=== PATIENT | male | born 1950 | race Caucasian/White ===

== ENCOUNTER → 2017-10-11 | Outpatient (CLI) | payer OTHER ==
[~2017-10-11] MED LIST: ASPIR 8181 MG PO; ATORVASTATIN CA40 MG PO; BRILINTA90 MG PO; CARDIZEM CD180 MG PO; CO Q-10100 MG PO; HUMALOG100 UNIT/1 SUBQ; LANTUS; LANTUS SUBQ; LEVOTHYROXINE0.05 MG PO; LIPITOR 20 MG T20 M1 PO; LOPRESSOR50 PO; MINIPRIN81 MG PO; MULTI VITAMIN1 EACH PO; NITROGLYCERIN0.4 MG SUBLING; TYLENOL325 MG PO
[2017-10-11 12:56] LABS: ABSOLUTE BASOPHILS 0.1 thou/uL (0.0-0.2); ABSOLUTE EOSINOPHILS 0.2 thou/uL (0.0-0.7); ABSOLUTE LYMPHOCYTES 1.6 thou/uL (0.8-5.3); ABSOLUTE MONOCYTES 0.4 thou/uL (0.0-1.2); ABSOLUTE NEUTROPHILS 5.4 thou/uL (1.6-8.1); BASOPHILS 0.8 %; EOSINOPHILS 2.1 %; HEMATOCRIT 34.1 % (42.0-52.0); HEMOGLOBIN 11.7 gm/dL (14.0-18.0); LYMPHOCYTES 20.7 %; MCH 32.3 pg (26.0-34.0); MCHC 34.2 g/dL (28.0-37.0); MCV 94.4 fL (80.0-100.0); MONOCYTES 5.7 %; MPV 6.9 fl. (7.2-11.1); NUCLEATED RBCS 0 /100WBC; PLATELET COUNT* 224 thou/uL (150-400); POLYS 70.7 %; RBC 3.61 mil/uL (4.50-6.00); RDW-CV 13.4 % (10.5-14.5); WBC 7.6 thou/uL (4.0-11.0)
[2017-10-11 13:03] LABS: CALCIUM 8.9 mg/dL (8.5-10.1); CREATININE 1.9 mg/dL (0.6-1.3); POTASSIUM 4.4 mmol/L (3.5-5.1)
[2017-10-11 13:08] LABS: ALBUMIN 3.6 g/dL (3.4-5.0); TOTAL BILIRUBIN 0.5 mg/dL (<0.1-1.0); TOTAL PROTEIN 7.3 g/dL (6.4-8.2)
== END ==
LOC: M.CT 11:59 → M.LAB 12:00 → M.CT 13:00
PROVIDERS: Family Medicine
DX: R10.84 Generalized abdominal pain (principal); M54.5 Low back pain; R19.8 Other specified symptoms and signs involving the digestive system and abdomen

== ENCOUNTER 2020-12-27 15:52 | Observation (INO) | payer OTHER, MEDICARE ==
[~2020-12-27] VITALS: Ht 188 cm; Wt 104.3 kg
[2020-12-27 15:52] VITALS: BP 156/85
[2020-12-27 16:14] LABS: ABSOLUTE BASOPHILS 0.1 thou/uL (0.0-0.2); ABSOLUTE EOSINOPHILS 0.1 thou/uL (0.0-0.7); ABSOLUTE LYMPHOCYTES 1.5 thou/uL (0.8-5.3); ABSOLUTE MONOCYTES 0.4 thou/uL (0.0-1.2); ABSOLUTE NEUTROPHILS 5.9 thou/uL (1.6-8.1); BASOPHILS 0.8 %; EOSINOPHILS 1.3 %; HEMOGLOBIN 13.1 gm/dL (14.0-18.0); LYMPHOCYTES 18.9 %; MCH 32.7 pg (26.0-34.0); MCHC 34.4 g/dL (28.0-37.0); MONOCYTES 5.6 %; NUCLEATED RBCS 0 /100WBC; PLATELET COUNT* 279 thou/uL (150-400); POLYS 73.4 %
[2020-12-27 16:22] LABS: CALCIUM 7.9 mg/dL (8.5-10.1); CREATININE 2.2 mg/dL (0.6-1.3); POTASSIUM 4.3 mmol/L (3.5-5.1)
[2020-12-27 16:35] LABS: ALBUMIN 3.2 g/dL (3.4-5.0); CK-MB MASS 1.2 ng/mL (<0.5-3.6); MAGNESIUM 1.8 mg/dL (1.8-2.4); TOTAL BILIRUBIN 0.4 mg/dL (<0.1-1.0); TOTAL PROTEIN 7.4 g/dL (6.4-8.2)
[2020-12-27 19:30] VITALS: BP 158/74
[2020-12-27] MEDS ORDERED: COZAAR 25 MG TA25 M1 PO (20:13)
[2020-12-27 23:30] VITALS: BP 164/73
[2020-12-28] VITALS (15 sets, daily range): BP systolic 117–175; BP diastolic 67–86
--- NOTE | 2020-12-28 10:00 | EKG ---
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
--- NOTE | 2020-12-28 15:00 | EKG ---
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 : 1950 Requested By: Christian Mittal Order Number: [id number] Reading MD: Christian Mittal Measurements Intervals [place] Rate: 48 P: 52 CT: 179 QRS: 18 QRSD: 101 T: 91 QT: 485 QTc: 434 Interpretive Statements Sinus bradycardia Ventricular premature complex Inferior infarct, old Compared to ECG 12/27/2020 15:54:43 Ventricular premature complex(es) now present Sinus rhythm no longer present Myocardial infarct finding still present Electronically Signed On 12-28-2020 14:59:54 CDT by Christian Mittal [email or web address] <ELECTRONICALLY SIGNED> By: Christian Mittal MD, FAC 12/28/20 1459 1214 1214 Christian Mittal MD, FAC /EPI
[2020-12-28] MEDS ORDERED: EFFIENT10 MG PO (15:56)
--- NOTE | 2020-12-28 16:26 | 2DMMODE ---
[place] [address] 2 D/M-MODE ECHOCARDIOGRAM Name: MAYURJOSEPH III Room: [address] Keith Dolan#: [id number] Admission: 12/27/20 Attend Phys: Jaden Marx, Discharge: Date of : 54 Date of Service: 12/28/20 1626 Report #: [id number] THIS REPORT FOR: cc: Demond Zhou,Demond Wagner,Christian Padron MD [facility] ~ APPROVED REPORT Study performed: 12/28/2020 14:40:05 EXAM: Comprehensive 2D, Doppler, and color-flow Echocardiogram Patient Location: In-Patient Room #: er Status: routine BSA: 2.31 HR: 50 bpm BP: 159/68 mmHg Rhythm: NSR Other Information Study Quality: Good Indications Chest Pain 2D Dimensions IVSd: 14.42 (7-11mm) LVOT Diam: 20.42 (18-24mm) LVDd: 55.31 mm PWd: 12.62 (7-11mm) Ascending Ao: 36.65 (22-36mm) LVDs: 32.13 (25-40mm) Aortic Root: 36.94 mm Volumes Left Atrial Volume (Systole) LA ESV Index: 25.70 mL/m2 Aortic Valve AoV Peak Alex.: 1.48 m/s AO Peak Gr.: 8.75 mmHg LVOT Max P.86 mmHg AO Mean Gr.: 4.51 mmHg LVOT Mean P.64 mmHg LVOT Max V: 0.98 m/s AO V2 VTI: 31.73 cm LVOT Mean V: 0.57 m/s STAN (VTI): 2.58 cm2 LVOT V1 VTI: 25.04 [place] [address] 2 D/M-MODE ECHOCARDIOGRAM Name: JOSEPH MERCHANT III Room: [address] M.R.#: [id number] Admission: 12/27/20 Attend Phys: Jaden Marx, Discharge: Date of : 54 Date of Service: 12/28/20 1626 Report #: [id number] Mitral Valve E/A Ratio: 0.86 MV Decel. Time: 261.41 ms MV E Max Alex.: 0.69 m/s MV PHT: 75.81 ms MVA (PHT): 2.90 cm2 TDI E/Lateral E': 7.67 E/Medial E': 7.67 Medial E' Alex.: 0.09 m/s Lateral E' Alex.: 0.09 m/s Pulmonary Valve PV Peak Alex.: 0.87 m/s PV Peak Gr.: 3.03 mmHg Left Ventricle The left ventricle is normal size. There is normal LV segmental wall motion. Mild concentric left ventricular hypertrophy. Left ventricular systolic function is normal. The left ventricular ejection fraction is within the normal range. LVEF is 55-60%. Grade I - abnormal relaxation pattern. Right Ventricle The right ventricle is normal size. The right ventricular systolic function is normal. Atria The left atrium size is normal. The right atrium size is normal. Aortic Valve The aortic valve is normal in structure. No aortic regurgitation is present. There is no aortic valvular stenosis. Mitral Valve The mitral valve is normal in structure. Mild mitral regurgitation. No evidence of mitral valve stenosis. Tricuspid Valve The tricuspid valve is normal in structure. Unable to assess PA pressure. Trace tricuspid regurgitation. Pulmonic Valve The pulmonary valve is normal in structure. There is no pulmonic [place] [address] 2 D/M-MODE ECHOCARDIOGRAM Name: MAYURJOSEPHMERLIN ARRON [address]: [address]#: [id number] Admission: 12/27/20 Attend Phys: Jaden Marx, Discharge: Date of : 54 Date of Service: 12/28/20 1626 Report #: [id number] Great Vessels The aortic root is normal in size. IVC is normal in size and collapses >50% with inspiration. Pericardium There is no pericardial effusion. <Conclusion> Mild concentric left ventricular hypertrophy. LVEF is 55-60%. Mild mitral regurgitation. <ELECTRONICALLY SIGNED> By: Christian Mittal MD, [facility] 12/28/20 1626 162 162 Christian Mittal MD, FAC /INF
--- NOTE | 2020-12-28 17:18 | CARD ---
[address] [address] CARDIAC CATH REPORT Name: JOSEPH MERCHANT III Room: [place] [address] ADM Keith Dolan#: [id number] Admission: 12/27/20 Attend Phys: Jaden Marx MD Discharge: Date of : 54 Report #: [id number] THIS REPORT FOR: cc: Demond Zhou Vincent R. DO Blick, David R. MD [facility] ~ APPROVED REPORT Study performed: 12/28/2020 10:14:15 Patient Details Patient Status: ED Room #: The patient is a 70 year-old male Event Personnel Christian Mittal Auto Damage Trainee, Mary Andrea RN RN, Marilu Madrid RTR Scrub, Kim Tadeo RTR Monitor Procedures Performed Art Access - R radial artery Left Heart Cath w/or w/o Coronaries ANDI Place w/wo Plasty Single LAD Hemostasis with Hemoband Indication Unstable angina , Chest pain Risk Factors Hypercholesterolemia, Coronary Artery DiseaseHypertension, Diabetes Previous Procedures/Diagnoses Previous PCI, Previous LA Admission/Lab Medications/Medications given during procedure Glycoprotein IllbIlla Inhibitors, Heparin Unfract., Lidocaine Subcut 8 ml, Oxygen Nasal cannula 2 l per min, 0.9% Sodium Chloride IV 150 ml per hr, Nitroglycerin IA 400 mcg, Verapamil IA 5 mg, Heparin IV 5000 units, Heparin IV 1000 units, Aggrastat IV 10 ml, Effient PO 60 mg Procedure Narrative The patient was brought electively to the Cardiac Catheterization Laboratory and was prepped and draped in a sterile manner. The right wrist was infiltrated with 2% Lidocaine [place] [address] CARDIAC CATH REPORT Name: JOSEPH MERCHANT III Room: [address] Magdaleno#: [id number] Admission: 12/27/20 Attend Phys: Jaden Marx MD Discharge: Date of : 54 Report #: [id number] conscious sedation was used throughout procedure with appropriate monitoring and was performed in the presence of a registered nurse who was an independent trained observer other than the physician performing the procedure. A Slender Glidesheath sheath was inserted into the right radial artery. Coronary angiography was performed using coronary diagnostic catheters. The right coronary system was accessed and visualized with a Diagnostic catheter. The left coronary system was accessed and visualized with a Diagnostic catheter. The left ventricle was accessed and visualized with a Diagnostic catheter. Left ventricular/Aortic Valve gradient assessed via catheter pullback. Closure device was deployed with a 6 Fr Vasc-Band Lng 27cm. The patient tolerated the procedure well and there were no complications associated with the procedure. There was no hematoma. Intraoperative Conscious Sedation Sedation start time: 10:49 Case end Time: 11:30 Fentanyl 25 mcg Versed 2 mg Fluoro Time: 6.2 minutes Dose: DAP 45459 cGycm2 1164 mGy Contrast Type and Amount: Visipaque 160 ml Coronary Angiography The patient's coronary anatomy is right dominant. Diagnostic Cath Left Main 0% stenosis LAD 80% mid stenosis Diagonal 2 small vessel with 90% proximal stenosi Circumflex mid stent with 0% restenosis Right Coronary proximal stent with 0% restenosis Left Ventriculography Left Ventriculography was not performed. Hemodynamics The aortic pressure is 119/61 mmHg with a mean of 80 mmHg. The left ventricular pressure is 114/10 mmHg with a mean of mmHg. The left ventricular end diastolic pressure is 10 mmHg. There was no gradient across the aortic valve upon pullback. Pullback from the left ventricle to the aorta revealed no gradient across [place] [address] CARDIAC CATH REPORT Name: JOSEPH MERCHANT III Room: [address] M..#: [id number] Admission: 12/27/20 Attend Phys: Jaden Marx MD Discharge: Date of : 54 Report #: [id number] PCI Technique Lesion Anticoagulation was achieved with Heparin. bolus of iv aggrastat given Percutaneous coronary intervention was performed on the mid left anterior descending artery segment. The lesion stenosis prior to intervention was 80% with DON 3 flow. A 6F XB LAD 3.5 Guide Catheter was used to engage the left ostium. A IG: BMW 190cm Interventional Guidewire was used to cross the lesion. BALLOON DILATION A Balloon catheter Euphora SC 2.5x12 was inserted and inflated up to 11.00atm for 15seconds. Repeat angiography revealed the following post-dilatation results: 40% stenosis. STENT DEPLOYMENT A drug-eluting stent Marcelo RX Stent 2.5X18mm was inserted and inflated up to 12.00atm for 19seconds. Repeat angiography revealed the following post-stent deployment results: 0% stenosis. Additional Inflation: 16.00atm for 18seconds. Final angiography reveals 0 % stenosis with DON 3 flow. Conclusion 1. 80% stenosis of the mid LAD 2. no restenosis noted of stents in the mid circumflex artery and the proximal RCA 3. successful placement of a drug eluting stent in the mid LAD Recommendations Cardiac Rehabilitation Referral Aggressive Medical Therapy Medications Administered Prasugrel <ELECTRONICALLY SIGNED> By: Christian Mittal MD, [facility] 12/28/208 17 17Dakaren Mittal MD, FAC /INF
--- NOTE | 2020-12-29 16:36 | CON ---
[address] [address] CONSULTATION Name: JOSEPH MERCHANT III Room: [address] Keith Dolan#: [id number] Admission: 12/27/20 Attend Phys: Jaden Marx MD Discharge: 12/28/20 Date of : 54 Report #: [id number] THIS REPORT FOR: cc: Demond Zhou Vincent R. DO Blick, David R. MD [facility] ~ cc: Santa Lyons MD DATE OF CONSULTATION: 12/28/2020 CARDIOLOGY CONSULTATION HISTORY OF PRESENT ILLNESS: The patient is a 70-year-old white male who I was asked to see in the Emergency Room after he complained of chest pain. The patient apparently has a history of PSVT, but never required cardioversion. He has had to go to the Emergency Room a couple times. He received ____ medications. He was placed on diltiazem. He has had no recent palpitations. He is not very active at this time. He presented in 2014 with a myocardial infarction and had a stent placed. He was brought back 2 weeks later and electively had another coronary stent placed. He has done well since that time. His last nuclear stress test in 2018 showed no ischemia. Previous screening showed minimal carotid plaque. I actually last saw him last March. He is not very active, but denies recent chest pain or shortness of breath. He has had a cough recently, but no fever. He has had no edema, palpitations or syncope. He was at home yesterday watching TV when he felt a pain in his chest, went into his left arm, felt nauseated, diaphoretic. He took nitroglycerin, which seemed to help. However, it recurred and he called the ambulance. He was brought here to [facility] and admitted. I was asked to see him for further evaluation and treatment. He denied the pain being related to food. He has had no recent bleeding. Denied trauma to his chest. PAST MEDICAL HISTORY: He has had eye surgery in the past. He has a history of hypertension, diabetes, hyperlipidemia. CURRENT MEDICATIONS: Include atorvastatin, aspirin, diltiazem, insulin, he has a glucose monitor in place, Synthroid, losartan, metoprolol. ALLERGIES: HE HAD PREVIOUS BLEEDING IN HIS EYES WHILE TAKING [place]. FAMILY HISTORY: His father of a heart attack. SOCIAL HISTORY: He is . He and his live in [place]. 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 No smoking, no alcohol abuse. REVIEW OF SYSTEMS: He has no history of stroke or asthma. [place] [address] CONSULTATION Name: JOSEPH MERCHANT III Room: [address] Keith Dolan#: [id number] Admission: 12/27/20 Attend Phys: Jaden Marx MD Discharge: 12/28/20 Date of : 54 Report #: [id number] kidney disease, followed by Nephrology. No cancer. No chronic skin condition. No psychiatric illness. PHYSICAL EXAMINATION: GENERAL: Revealed an elderly male, appeared in no distress. VITAL SIGNS: His blood pressure 150/70, pulse 70, he is afebrile. HEENT: He was anicteric. Conjunctivae pink. Mucus membranes moist. NECK: Veins do not appear distended. No carotid bruits were heard. Neck supple. CHEST: Clear to auscultation. CARDIAC: Regular rate and rhythm. No murmur. ABDOMEN: Soft. EXTREMITIES: Had no edema. Posterior tibial pulse 2+ bilaterally. SKIN: Cool and dry. NEUROLOGIC: Nonfocal. LABORATORY DATA: His ECG when he arrived last night showed a sinus rhythm, evidence of previous inferior infarction, nonspecific T-wave changes. His workup in the Emergency Room last night, he had a portable chest x-ray that showed normal heart size and clear lung martinez. His lab work, sodium 142, potassium 4.3, creatinine is 2.2. It was actually 2.4 in 2015. His troponins are all less than 0.06. His white blood cell count 8.0, hemoglobin 13.1. His COVID antigen stat test was negative. IMPRESSION AND RECOMMENDATIONS: 1. Unstable angina. Previous stents. Recommend cardiac catheterization. 2. History of supraventricular tachycardia. No recent recurrences on a calcium frank or beta frank. 3. Diabetes. The patient on insulin. 4. Hypertension. The patient is on a calcium frank, adrenergic receptor binder and beta-frank. 5. Hyperlipidemia. The patient is on a statin drug. 6. Chronic kidney disease. The patient followed by Nephrology. <ELECTRONICALLY SIGNED> By: Christian Mittal MD, [facility] 12/29/20 1636 0805 [id number] Mittal MD, [facility] /nt
== END 2020-12-28 16:30 | disposition home or self-care (01) ==
LOC: M.ERS 15:52 → M.TBA-ER 17:01
PROVIDERS: Family Medicine; ADMIT Internal Medicine; ATTEND Internal Medicine
DX: I25.119 Atherosclerotic heart disease of native coronary artery with unspecified angina pectoris (principal); Z20.822 Contact with and (suspected) exposure to COVID-19; I12.9 Hypertensive chronic kidney disease with stage 1 through stage 4 chronic kidney disease, or unspecified chronic kidney disease; N18.30 Chronic kidney disease, stage 3 unspecified; E11.22 Type 2 diabetes mellitus with diabetic chronic kidney disease; E11.42 Type 2 diabetes mellitus with diabetic polyneuropathy; I25.2 Old myocardial infarction; E11.9 Type 2 diabetes mellitus without complications; E78.00 Pure hypercholesterolemia, unspecified; M19.90 Unspecified osteoarthritis, unspecified site; Z79.4 Long term (current) use of insulin; Z79.899 Other long term (current) drug therapy